=== PATIENT | male | born 1995 | race African-American/Black ===

== ENCOUNTER 2018-09-30 06:42 | Emergency (ER) | payer OTHER ==
[2018-09-30] MEDS ORDERED: ONDANSETRON 4 MG TAB.RAPDIS PO ONE (07:01)
[2018-09-30] MEDS ORDERED: HYDROCODONE/ACETAMINOPHEN 5-325 MG TABLET PO ONE (07:01)
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
[2018-09-30 09:03] VITALS: BP 137/80
== END 2018-09-30 09:03 | disposition home or self-care (01) ==
LOC: ER 06:42
PROC: 2W3DX1Z Immobilization of Left Lower Arm using Splint (ICD-10-PCS; principal; 2018-09-30)
DX: S62.515A Nondisplaced fracture of proximal phalanx of left thumb, initial encounter for closed fracture (principal); S80.11XA Contusion of right lower leg, initial encounter; M25.532 Pain in left wrist; M79.604 Pain in right leg; V87.7XXA Person injured in collision between other specified motor vehicles (traffic), initial encounter; F17.210 Nicotine dependence, cigarettes, uncomplicated
CPT/HCPCS: 99406; 99284; 73130; 73590; 73110; 29125; S0119

== ENCOUNTER 2018-10-03 13:44 | Emergency (ER) | payer OTHER ==
[2018-10-03 13:49] VITALS: BP 119/79
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
== END 2018-10-03 15:45 | disposition home or self-care (01) ==
LOC: ER 13:44
DX: S62.619D Displaced fracture of proximal phalanx of unspecified finger, subsequent encounter for fracture with routine healing (principal); X58.XXXD Exposure to other specified factors, subsequent encounter; F17.210 Nicotine dependence, cigarettes, uncomplicated
CPT/HCPCS: 99282; 99406